=== PATIENT | female | born 1960 | race Caucasian/White ===

== ENCOUNTER → 2017-03-31 | Outpatient (CLI) | payer BC | LOC: MC.RAD 10:58 | DX: Z12.31 Encounter for screening mammogram for malignant neoplasm of breast (principal) ==

== ENCOUNTER 2018-05-02 12:52 | Day surgery (SDC) | payer BC ==
[~2018-05-02] VITALS: Ht 160 cm; Wt 112.9 kg
[2018-05-02] MEDS ORDERED: SINGULAIR 110 MG/TAB PO (13:21)
[2018-05-02] MEDS ORDERED: COZAAR 50MG50 MG/TAB PO (13:22)
[2018-05-02] MEDS ORDERED: EFFEXOR 75M75 MG/TAB PO (13:22)
[2018-05-02] MEDS ORDERED: HYGROTON 2525 MG/TAB (13:23)
[2018-05-02] MEDS ORDERED: MULTIPLE VITAMI1 CAP PO (13:23)
[2018-05-02] MEDS ORDERED: ZYRTEC 10MG10 MG PO (13:24)
[2018-05-02] MEDS ORDERED: ASPIRIN E.C. 8181 MG PO (13:24)
[2018-05-02] MEDS ORDERED: SPIRIVA RESPIMAT4 GM IH (13:25)
[2018-05-02 13:26] VITALS: PULSE 90; TEMP 98.2
[2018-05-02 14:25] VITALS: BP 120/89; PULSE 80; TEMP 97.8
[2018-05-02 14:30] VITALS: BP 108/80; PULSE 87
[2018-05-02 14:45] VITALS: BP 112/80; PULSE 64
[2018-05-02 15:00] VITALS: BP 111/96; PULSE 64
[2018-05-02 15:15] VITALS: BP 137/88; PULSE 63
== END 2018-05-02 15:34 | disposition home or self-care (01) ==
LOC: SDCO 12:52
DX: Z12.11 Encounter for screening for malignant neoplasm of colon (principal); K57.30 Diverticulosis of large intestine without perforation or abscess without bleeding; K64.0 First degree hemorrhoids; I10 Essential (primary) hypertension; J45.909 Unspecified asthma, uncomplicated; Z79.82 Long term (current) use of aspirin; Z88.8 Allergy status to other drugs, medicaments and biological substances
CPT/HCPCS: J2250; J2405; J3010; J7030

== ENCOUNTER 2023-11-08 10:23 | Day surgery (SDC) | payer BC ==
[~2023-11-08] VITALS: Ht 157.5 cm; Wt 102.3 kg
[2023-11-08] VITALS (7 sets, daily range): BP systolic 119–136; BP diastolic 63–78; PULSE 73–84; TEMP 97.4–98.3
[~2023-11-08 10:23] MED LIST: ASPIRIN E.C. 8181 MG PO; COZAAR 50MG50 MG/TAB PO; EFFEXOR 75M75 MG/TAB PO; HYGROTON 2525 MG/TAB; LR 1,000 ML IV SCH; MULTIPLE VITAMI1 CAP PO; Rocuronium 50 MG/5 ML Multi-Dose VIAL ONE; SINGULAIR 110 MG/TAB PO; SPIRIVA RESPIMAT4 GM IH; Succinylcholine PF 100 MG/5 ML SYRINGE/POLY AMP IV ONE; ZYRTEC 10MG10 MG PO
[2023-11-08 11:13] LABS: BASO % 0.3 % (0.0-2.0); GRAN # 3.4 K/mm3 (1.4-6.5); HEMATOCRIT 42.3 % (37.0-47.0); HEMOGLOBIN 14.1 g/dl (12.5-16.0); LYMPH # 2.2 K/mm3 (1.2-3.4); LYMPH % 35.3 % (20.0-51.0); MEAN CELL VOLUME 82 fl (80.0-100.0); MEAN CORPUSCULAR HEMOGLOBIN 27 pg (27-31); MEAN CORPUSCULAR HGB CONC 33 g/dl (33.0-37.0); MEAN PLATELET VOLUME 9.8 fl (7.4-10.4); MONO # 0.6 K/mm3 (0.1-0.6); MONO % 9.1 % (1.7-9.3); PLATELET COUNT 287 K/mm3 (130-400); RED BLOOD COUNT 5.16 M/mm3 (4.10-5.30); REDCELL DISTRIBUTION WIDTH-CV 13.2 % (11.5-14.5)
[2023-11-08] MEDS ORDERED: Indocyanine Green 12.5 MG in Water For Injection,Sterile 2.5 ML IV ONE (11:30)
[2023-11-08 11:39] LABS: ALBUMIN 3.4 gm/dL (3.4-4.8); BILIRUBIN,TOTAL 0.6 mg/dL (0.2-1.2); CALCIUM 9.1 mg/dL (8.4-10.2); CREATININE, serum 0.65 mg/dL (0.57-1.11); POTASSIUM 3.4 mmol/L (3.5-4.5); TOTAL PROTEIN 6.7 gm/dL (6.2-8.1)
[2023-11-08] MEDS ORDERED: TRELEGY ELLIPT1 EACH IH (11:40)
[2023-11-08] MEDS ORDERED: VYVANSE40 MG PO (11:41)
[2023-11-08] MEDS ORDERED: SYNTHROID0.088 MG/T PO (11:41)
[2023-11-08] MEDS ORDERED: MASON NATURAL1200 MG PO (11:42)
[2023-11-08] MEDS ORDERED: MAGNESIUM250 M1 PO (11:42)
[2023-11-08] MEDS ORDERED: fentaNYL 50 MCG/ML 2 ML VIAL ONE ×2 (12:36→13:35)
[2023-11-08] MEDS ORDERED: NORCO 325 MG-51 TAB PO (12:58)
[2023-11-08] MEDS ORDERED: MOTRIN 600600 MG/TAB PO (12:58)
[2023-11-08] MEDS ORDERED: Ondansetron 4 MG/2 ML VIAL ONE (13:08)
[2023-11-08] MEDS ORDERED: dexAMETHasone 10 MG/ML VIAL ONE (13:08)
[2023-11-08] MEDS ORDERED: Topical Skin Adhesive 1 EACH (1 ML) TOP ONE (13:20)
[2023-11-08] MEDS ORDERED: fentaNYL 50 MCG/ML 2 ML VIAL IV PRN (13:30)
[2023-11-08] MEDS ORDERED: HYDROmorphone 2 MG/1 ML VIAL IV PRN (13:30)
[2023-11-08] MEDS ORDERED: Meperidine 50 MG/ML 1 ML VIAL IV PRN (13:30)
[2023-11-08] MEDS ORDERED: hydrALAZINE 20 MG/ML 1 ML VIAL IV PRN (13:30)
[2023-11-08] MEDS ORDERED: Ondansetron 4 MG/2 ML VIAL IV PRN ×2 (13:30→16:15)
[2023-11-08] MEDS ORDERED: Phenylephrine 10 MG/ML VIAL ONE (13:43)
[2023-11-08] MEDS ORDERED: Ibuprofen 600 MG TAB PO PRN (16:15)
--- NOTE | 2023-11-08 17:20 | NUR ---
1525 RETURNS TO ROOM 2 PER CART. DROWSY, SROUSES SPONTANEOUSLY. RESP UNLABORED. HOB ELEVATED 30 DEGREES. ABD SOFT. INCISION SITES X 5 INTACT WITHOUT REDNESS OR EDEMA. REPORTS MODERATED DISCOMFORT. CALL LIGHT AT SIDE. IN ROOM 1540 REPOSITIONS ON CART. HOB ELEVATED 50 DEGREES 1555 HOB ELEVATED 70 DEGREES. TOLERATES PO WATER WITHOUT NAUSEA 1610 DOZING 1618 PO NORCO GIVEN FOR PAIN 4/10 PRIOR TO CAR RIDE HOME 1620 DISCHARGE INSTRUCTIONS REVIEWED. PATIENT VERABLIZES UNDERSTANDING. COPY PROVIDED IN DISCHARGE FOLDER 1635 HOB ELEVATED 80 DEGREES. TOLERATES PO WATER AND SALTINES WITHOUT NAUSEA 1650 REPORTS PAIN 3-4/10 1705 IV SITE DC'D. PATIENT SITS ON EDGE OF CART. DRESSES SELF, THEN AMBULATES TO BATHROOM WITH STANDBY ASSIST. ADMITS TO VOIDING WITHOUT DIFFICULTY
== END 2023-11-08 17:20 | disposition home or self-care (01) ==
LOC: SDCO 10:23
PROVIDERS: Surgery
DX: K80.10 Calculus of gallbladder with chronic cholecystitis without obstruction (principal); E66.9 Obesity, unspecified; Z68.39 Body mass index [BMI] 39.0-39.9, adult
CPT/HCPCS: J0330; J1100; J2371; J2405; J2704; J3010; J7120

== ENCOUNTER 2024-06-29 11:02 | Inpatient (IN) | payer BC ==
[~2024-06-29] VITALS: Ht 157.5 cm; Wt 96.4 kg
[~2024-06-29 11:02] MED LIST changes: -LR 1,000 ML IV SCH; +MAGNESIUM250 M1 PO; +MASON NATURAL1200 MG PO; +MOTRIN 600600 MG/TAB PO; +NORCO 325 MG-51 TAB PO; -Rocuronium 50 MG/5 ML Multi-Dose VIAL ONE; +SYNTHROID0.088 MG/T PO; -Succinylcholine PF 100 MG/5 ML SYRINGE/POLY AMP IV ONE; +TRELEGY ELLIPT1 EACH IH; +VYVANSE40 MG PO
[2024-06-29] MEDS ORDERED: NS 1,000 ML IV ONE ×3 (11:45→16:32)
[2024-06-29] MEDS ORDERED: Ondansetron 4 MG/2 ML VIAL IV ONE (11:45)
[2024-06-29 12:01] LABS: HEMATOCRIT 48.9 % (37.0-47.0); HEMOGLOBIN 16.4 g/dl (12.5-16.0); MEAN CELL VOLUME 83 fl (80.0-100.0); MEAN CORPUSCULAR HEMOGLOBIN 28 pg (27-31); MEAN CORPUSCULAR HGB CONC 34 g/dl (33.0-37.0); MEAN PLATELET VOLUME 10.3 fl (7.4-10.4); PLATELET COUNT 363 K/mm3 (130-400); RED BLOOD COUNT 5.93 M/mm3 (4.10-5.30)
[2024-06-29] MEDS ORDERED: Morphine 4 MG/ML VIAL IV ONE (12:15)
[2024-06-29 12:32] LABS: ALBUMIN 3.7 g/dL (3.4-4.8); BILIRUBIN,TOTAL 0.8 mg/dL (0.2-1.2); CALCIUM 10.4 mg/dL (8.4-10.2); CREATININE, serum 1.38 mg/dL (0.57-1.11); TOTAL PROTEIN 7.8 g/dl (6.2-8.1)
[2024-06-29 12:38] LABS: POTASSIUM 2.8 mEq/L (3.5-4.5)
[2024-06-29] MEDS ORDERED: Iohexol 300 - 100 ML VIAL IV ONE (12:47)
[2024-06-29] MEDS ORDERED: NS 100 ML IV SCH (12:48)
[2024-06-29 12:53] LABS: BAND 1 % (0-10); LYMPHOCYTE 4 % (20.0-51.0); NEUTROPHILS 89 % (42.0-75.2)
[2024-06-29 12:54] LABS: PLATELET ESTIMATE NORMAL (NORMAL)
[2024-06-29] MEDS ORDERED: HYDROmorphone 0.5 MG/0.5 ML SYRINGE IV ONE (13:15)
[2024-06-29 13:25] LABS: PH 6.5 (5.0-8.5); URINE APPEARANCE CLEAR (CLEAR/HAZY); URINE BLOOD NEGATIVE (NEGATIVE); URINE COLOR Dark Yellow (YELLOW); URINE GLUCOSE NEGATIVE (NEGATIVE); URINE KETONE 2+ (NEGATIVE); URINE NITRATE NEGATIVE (NEGATIVE); URINE PROTEIN(semi-quant) 2+ (NEGATIVE)
[2024-06-29 13:38] LABS: COLLECTION METHOD CLEAN CATCH
[2024-06-29] MEDS ORDERED: Vancomycin 1.5 GM,Special Dose/Pharmacy Prepared 1.5 GM in NS 250 ML IV SCH (16:00)
[2024-06-29] MEDS ORDERED: Potassium Chloride 100 ML IV ONE (16:15)
[2024-06-29 16:45] VITALS: TEMP 97.8
[2024-06-29] MEDS ORDERED: NS 1,000 ML IV SCH (16:45)
[2024-06-29 17:25] VITALS: BP 115/66; PULSE 129
[2024-06-30] MEDS ORDERED: Potassium Chloride 100 ML IV ONE (00:30)
== END 2024-06-29 17:30 | disposition short-term general hospital (02) | DRG 871 ==
LOC: COL.ER 11:02 → SURG 13:17
PROVIDERS: Physician Assistant; ADMIT Internal Medicine
PROC: 02HV33Z Insertion of Infusion Device into Superior Vena Cava, Percutaneous Approach (ICD-10-PCS; principal; 2024-06-29)
PROC: 05H533Z Insertion of Infusion Device into Right Subclavian Vein, Percutaneous Approach (ICD-10-PCS; 2024-06-29)
DX: A41.9 Sepsis, unspecified organism (principal); K25.5 Chronic or unspecified gastric ulcer with perforation; R65.21 Severe sepsis with septic shock; K56.2 Volvulus; T82.524A Displacement of infusion catheter, initial encounter; N17.9 Acute kidney failure, unspecified; I10 Essential (primary) hypertension; E03.9 Hypothyroidism, unspecified; F32.A Depression, unspecified; Y84.8 Other medical procedures as the cause of abnormal reaction of the patient, or of later complication, without mention of misadventure at the time of the procedure; J30.2 Other seasonal allergic rhinitis; K44.9 Diaphragmatic hernia without obstruction or gangrene; K21.9 Gastro-esophageal reflux disease without esophagitis; Z90.49 Acquired absence of other specified parts of digestive tract; Z88.8 Allergy status to other drugs, medicaments and biological substances; Z98.51 Tubal ligation status; Z79.82 Long term (current) use of aspirin; Z79.899 Other long term (current) drug therapy; Z79.890 Hormone replacement therapy; Z23 Encounter for immunization
CPT/HCPCS: J1170; J1450; J2270; J2405; J2543; J3370; J3480; J7030; J7050; J7060; Q9967